=== PATIENT | female | born 1990 | race Caucasian/White ===

== ENCOUNTER 2017-07-24 11:04 | Emergency (ER) | payer OTHER ==
[2017-07-24 11:05] VITALS: BMI 23.3
[2017-07-24 11:13] VITALS: BP 128/75; PULSE 89; RESP 20; TEMP 98.3; O2SAT 100
--- NOTE | 2017-07-24 11:27 | C.PDOC ---
History Of Present Illness 27 yo female c/o cotton ball in right ear for 45 min. Pt notes she was cleaning her ears and the cotton from the Qtip fell out. She tried to use a joceline pin to retrieve it without success. (-) hearing loss (-) pain (-) discharge (-)bleeding Time Seen by Provider: 07/24/17 11:15 Chief Complaint (Nursing): ENT Problem History Per: Patient History/Exam Limitations: None Onset/Duration Of Symptoms: Mins Current Symptoms Are (Timing): Still Present Past Medical History Vital Signs: Last Vital Signs Temp 98.3 F 07/24/17 11:11 Pulse 89 07/24/17 11:11 Resp 20 07/24/17 11:11 BP 128/75 07/24/17 11:11 Pulse Ox 100 07/24/17 11:27 - Medical History PMH: Back Problems Family History: States: Unknown Family Hx - Social History Hx Tobacco Use: No Hx Alcohol Use: No Hx Substance Use: No - Immunization History Hx Tetanus Toxoid Vaccination: No Hx Influenza Vaccination: No Hx Pneumococcal Vaccination: No Review Of Systems Constitutional: Negative for: Fever Eyes: Negative for: Vision Change ENT: Negative for: Ear Pain, Ear Discharge Physical Exam - Physical Exam Appears: Well, Non-toxic, No Acute Distress Skin: Normal Color, Warm, Dry Head: Atraumatic, Normacephalic Eye(s): bilateral: Normal Inspection, PERRL, EOMI Ear(s): Left: Normal, Right: Other ((+) FB ) Nose: Normal Oral Mucosa: Moist Neck: Normal, Normal ROM, Supple Chest: Symmetrical Respiratory: No Accessory Muscle Use Back: Normal Inspection Extremity: Normal ROM Neurological/Psych: Oriented x3, Normal Speech ED Course And Treatment O2 Sat by Pulse Oximetry: 100 Progress Note: FB removed with alligator forceps. TM intact. No discharge or ertyhema. (+) light reflex. Disposition - Disposition Referrals: Lavelle Richards MD [Staff Provider] - Disposition: HOME/ ROUTINE Disposition Time: 11:25 Condition: STABLE Instructions: Ear Foreign Body (ED) Forms: [employer] English (Namibian) - Clinical Impression Clinical Impression: Ear foreign body
== END 2017-07-24 11:30 | disposition home or self-care (01) ==
LOC: C.ER 11:04
DX: T16.1XXA Foreign body in right ear, initial encounter (principal); X58.XXXA Exposure to other specified factors, initial encounter; Y93.E8 Activity, other personal hygiene

== ENCOUNTER 2018-01-24 12:04 | Inpatient (IN) | payer OTHER ==
[2018-01-24 12:29] VITALS: BMI 27.3
[2018-01-24] MEDS ORDERED: Penicillin G Potassium 5 MU in Dextrose 5% In Water 50 ML IV ONE (12:30)
--- NOTE | 2018-01-24 12:44 | OBHP ---
Datetime: 01/24/2018 12:35 IP Adm Impression: Term, intrauterine IP Admit Plan: Admit to unit Admit Comment, IP Provider: Pt is [id number] @ 39 4/7 presents today for complaints of contractions t hat started at 10:30 this am. She is being admitted for labor. POBHx: 2014 #5.8oz. PGYNHx: No STDs or hx of abnormal paps. PMHx: None PSHx: none Social: negative x 3. FHX: none. PE: SVE: /-1 A/P: labor 1) Admit 2) IVF 3) NPO 4) GBS + :start PCN 5) Epidural if necessary. Pelvic Type - PN: Adequate Extremities - PN: Normal Abdomen - PN: Normal Back - PN: Normal Breast - PN: Normal Lungs - PN: Normal Heart - PN: Normal Thyroid - PN: Normal Neurologic - PN: Normal HEENT - PN: Normal General - PN: Normal Presentation-Admit: Vertex FHR - Baseline A Provider: 150 Membranes, Provider: Intact Contraction Comments Provider: Q2-3 Comments, ACOG Physical Exam: PE: /-1 Gestation - Est Wks by US: 39 4/7 Pool Provider: Negative EGA AdmitDate IP: 39.3 Vital Signs Provider: Reviewed IP Chief Complaint: Uterine contractions NICHD Variability Prov Fetus A: Moderate 6-25bpm NICHD Accel Fetus A IP Provider: 15X15 FHR Category Provider Fetus A: Category I NICHD Decel Fetus A IP Provider: None Dilatation, Provider: 4 Effacement, Provider: 90 Station, Provider: -1 Genitourinary Exam: Normal DTRs - PN: Normal
--- NOTE | 2018-01-24 12:47 | OBADHP ---
Datetime: 01/24/2018 12:44 Admit Comment, IP Provider: ADMIT Labor Pelvic Type - PN: Adequate Extremities - PN: Normal Abdomen - PN: Normal Back - PN: Normal Breast - PN: Normal Lungs - PN: Normal Heart - PN: Normal Thyroid - PN: Normal Neurologic - PN: Normal HEENT - PN: Normal General - PN: Normal FHR - Baseline A Provider: 150 Membranes, Provider: Intact IP Chief Complaint: Uterine contractions NICHD Variability Prov Fetus A: Moderate 6-25bpm NICHD Accel Fetus A IP Provider: 15X15 Dilatation, Provider: 4 Effacement, Provider: 90 Station, Provider: -1 Genitourinary Exam: Normal DTRs - PN: Normal IP Adm Impression: Term, intrauterine ; Active labor IP Admit Plan: Admit to unit; Initiate labor protocol Datetime: 01/24/2018 12:35 Presentation-Admit: Vertex Contraction Comments Provider: Q2-3 Comments, ACOG Physical Exam: PE: /-1 Gestation - Est Wks by US: 39 4/7 Pool Provider: Negative Vital Signs Provider: Reviewed FHR Category Provider Fetus A: Category I NICHD Decel Fetus A IP Provider: None
--- NOTE | 2018-01-24 12:51 | OBHP ---
Datetime: 01/24/2018 12:44 IP Adm Impression: Term, intrauterine ; Active labor IP Admit Plan: Admit to unit; Initiate labor protocol Admit Comment, IP Provider: PT is @ 39 11/26 presents today for complaints of labor. She was seen in the private MD office and was noted to be in labor. POBHx: 2014 #5.08.bs PMHx: none PSHx: none Social: negative x 3 Medications: None ALL: NKDA. FHx: denies hx of cancer PE: 1 A/P: 27 @ a39 11/26 presents today for labor. 1) Admit to L_D 2) IVF 3) NPO 4) GBS+ 5) Epidural if necessary 6) Plan d/W Dr. Beal Pelvic Type - PN: Adequate Extremities - PN: Normal Abdomen - PN: Normal Back - PN: Normal Breast - PN: Normal Lungs - PN: Normal Heart - PN: Normal Thyroid - PN: Normal Neurologic - PN: Normal HEENT - PN: Normal General - PN: Normal FHR - Baseline A Provider: 150 Membranes, Provider: Intact EGA AdmitDate IP: 39.3 IP Chief Complaint: Uterine contractions NICHD Variability Prov Fetus A: Moderate 6-25bpm NICHD Accel Fetus A IP Provider: 15X15 Dilatation, Provider: 4 Effacement, Provider: 90 Station, Provider: -1 Genitourinary Exam: Normal DTRs - PN: Normal
[2018-01-24] MEDS ORDERED: Lactated Ringer's 1,000 ML IV SCH ×2 (13:00)
[2018-01-24 13:20] LABS: BASO % 0.6 % (0.0-2.0); EOS % 0.2 % (0.0-4.0); HEMOGLOBIN 10.9 g/dL (11.0-16.0); LYMPH # 1.7 K/uL (1.0-4.3); LYMPH % 23.1 % (20.0-40.0); MEAN CELL VOLUME 86.3 fL (81.0-99.0); MEAN CORPUSCULAR HEMOGLOBIN 29.4 pg (27.0-31.0); MEAN PLATELET VOLUME 9.4 fL (7.2-11.7); MONO # 0.5 K/uL (0.0-0.8); MONO % 6.2 % (0.0-10.0); NEUT # 5.1 K/uL (1.8-7.0); NEUT % 69.9 % (50.0-75.0); NRBC % 0.1 % (0.0-2.0); RBC 3.7 Mil/uL (3.80-5.20); RED CELL DISTRIBUTION WIDTH 15.1 % (11.5-14.5); WHITE BLOOD COUNT 7.3 K/uL (4.8-10.8)
[2018-01-24] MEDS ORDERED: Fentanyl/Bupivacaine HCl 250 ML EPI ONE (13:29)
[2018-01-24 13:38] LABS: ALBUMIN 3.5 g/dL (3.5-5.0); ALT/SGPT 18 U/L (9-52); AST/SGOT 21 U/L (14-36); BLOOD UREA NITROGEN 9 mg/dL (7-17); CALCIUM 9.2 mg/dl (8.6-10.4); GFR AFRICAN-AMERICAN > 60; GFR NON-AFRICAN AMERICAN > 60
[2018-01-24] MEDS ORDERED: Oxytocin 10 Units/ml Inj ONE ×2 (14:38→14:55)
[2018-01-24 14:47] LABS: SQUAMOUS EPITHIAL 1 /hpf (0-5); URINE BILIRUBIN NEGATIVE (NEGATIVE); URINE BLOOD NEGATIVE (NEGATIVE); URINE CLARITY Clear (Clear); URINE COLOR Yellow (YELLOW); URINE GLUCOSE (UA) NORMAL (Normal); URINE LEUKOCYTE ESTERASE NEG Leu/uL (Negative); URINE PROTEIN NEGATIVE (NEGATIVE); URINE UROBILINOGEN NORMAL mg/dL (0.2-1.0)
--- NOTE | 2018-01-24 15:02 | OBPN ---
Datetime: 01/24/2018 14:59 IP Progress Impression: Normal progression of labor IP Procedures: Sterile Vag Exam Contraction Comments Provider: q1-4 FHR - Baseline A Provider: 130 IP Progress Note Comment: pt was examined at bed side ve f/100/0 anticoaye will start pushing Vital Signs Provider: Reviewed; Within Normal Limits NICHD Accel Fetus A IP Provider: 15X15 FHR Category Provider Fetus A: Category I NICHD Variability Prov Fetus A: Moderate 6-25bpm Dilatation, Provider: 10 Effacement, Provider: 100 Station, Provider: 1 Datetime: 01/24/2018 12:44 Membranes, Provider: Intact Datetime: 01/24/2018 12:35 Pool Provider: Negative Gestation - Est Wks by US: 39 4/7 Presentation-Admit: Vertex NICHD Decel Fetus A IP Provider: None
--- NOTE | 2018-01-24 15:02 | OBADHP ---
Datetime: 01/24/2018 14:59 FHR - Baseline A Provider: 130 Contraction Comments Provider: q1-4 Vital Signs Provider: Reviewed; Within Normal Limits NICHD Variability Prov Fetus A: Moderate 6-25bpm NICHD Accel Fetus A IP Provider: 15X15 FHR Category Provider Fetus A: Category I Dilatation, Provider: 10 Effacement, Provider: 100 Station, Provider: 1 Datetime: 01/24/2018 12:44 Admit Comment, IP Provider: PT is @ 39 11/26 presents today for complaints of labor. She was seen in the private MD office and was noted to be in labor. POBHx: 2014 #5.08.bs PMHx: none PSHx: none Social: negative x 3 Medications: None ALL: NKDA. FHx: denies hx of cancer PE: 1 A/P: 27 @ a39 11/26 presents today for labor. 1) Admit to L_D 2) IVF 3) NPO 4) GBS+ 5) Epidural if necessary 6) Plan d/W Dr. Lian GURROLA AdmitDate IP: 39.3
[2018-01-24] MEDS ORDERED: Tdap Vaccine 0.5 ml Vial (10-64 yrs) IM ONE (15:04)
[2018-01-24] MEDS ORDERED: Oxycodone/Acetaminophen 5/325 mg Tab PO PRN (15:04)
--- NOTE | 2018-01-24 15:06 | OBDS ---
MATERNAL INFORMATION Estimated Blood Loss (ml): 500 Provider Comments: dr camarena private pateint baby deliverd in [place] compound presentation. end clean no com cytotec and extra pitocin given 9/9 cord gas send LABOR SUMMARY EDC: 01/28/2018 00:00 No. Babies in Womb: 1 LABOR INFORMATION Group B Beta Strep: Positive VAGINAL DELIVERY Episiotomy: None Laceration Extension: N/A Laceration Type: None BABY A INFORMATION Forceps: N/A Vacuum Extraction: N/A PRESENTATION/POSITION BABY A Presentation: Cephalic Cephalic Presentation: Vertex Vertex Position: Left Occipital Anterior with right arm PLACENTA INFORMATION BABY A Placenta Method of Delivery: Spontaneous Placenta Status: Delivered CORD INFORMATION BABY A Nuchal Cord : N/A
[2018-01-24] MEDS ORDERED: Oxytocin 30 UNIT 30 UNITS/500 ML BAG IV SCH (15:15)
[2018-01-24] MEDS ORDERED: Oxycodone/Acetaminophen 5/325 mg Tab ONE (17:42)
[2018-01-25 07:43] LABS: BASO % 0.4 % (0.0-2.0); EOS % 0.3 % (0.0-4.0); HEMOGLOBIN 9.9 g/dL (11.0-16.0); LYMPH # 1.8 K/uL (1.0-4.3); LYMPH % 22.2 % (20.0-40.0); MEAN CORPUSCULAR HEMOGLOBIN 28.6 pg (27.0-31.0); MEAN CORPUSCULAR HGB CONC 32.9 g/dL (33.0-37.0); MEAN PLATELET VOLUME 9.1 fL (7.2-11.7); MONO # 0.7 K/uL (0.0-0.8); MONO % 8.9 % (0.0-10.0); NEUT # 5.4 K/uL (1.8-7.0); NEUT % 68.2 % (50.0-75.0); RBC 3.46 Mil/uL (3.80-5.20); RED CELL DISTRIBUTION WIDTH 15.1 % (11.5-14.5)
[2018-01-25] MEDS ORDERED: Tdap Vaccine 0.5 ml Vial (10-64 yrs) IM ONE (10:00)
[2018-01-25] MEDS: Oxycodone/Acetaminophen 5/325 mg Tab PO PRN ×2 (10:35→17:49)
[2018-01-25] MEDS: Benzocaine/Menthol 20%-0.5% Topical Spray (60 ml) TOP PRN (10:37)
--- NOTE | 2018-01-25 11:54 | OBPPN ---
Datetime: 01/25/2018 11:51 PP Pain Prov: Within normal limits PP Nausea Prov: Denies PP Flatus Prov: Yes PP Abdomen/Uterus Prov: Normal PP Lochia Prov: Normal PP Extremities Prov: Normal PP Impression Prov: Normal progression PP Plan Prov: Continue present management PP Progress Note Prov: pt was seen T BED SIDE, PAIN UNDER CONTROL,NOM N/V, TYOLERTING DEIT,VOIDING,M IN [place] PPD#1 CONT PAIN MA CONT PP CARE ENCOURAGE AMBULATION Vital Signs Provider PP: Reviewed; Within Normal Limits
[2018-01-26 08:16] VITALS: BP 115/73; PULSE 56; O2SAT 98
[2018-01-26] MEDS: Benzocaine/Menthol 20%-0.5% Topical Spray (60 ml) TOP PRN (10:26)
[2018-01-26 18:50] VITALS: RESP 19; TEMP 97.1
== END 2018-01-26 13:30 | disposition home or self-care (01) | DRG 373 ==
LOC: C.EROB 12:04 → C.4D 12:30 → C.4M 18:30
PROVIDERS: ADMIT Obstetrics & Gynecology; ATTEND Obstetrics & Gynecology
PROC: 10E0XZZ Delivery of Products of Conception, External Approach (ICD-10-PCS; principal; 2018-01-24)
PROC: 3E0P7VZ Introduction of Hormone into Female Reproductive, Via Natural or Artificial Opening (ICD-10-PCS; 2018-01-24)
DX: O32.6XX0 Maternal care for compound presentation, not applicable or unspecified (principal); O99.824 Streptococcus B carrier state complicating childbirth; Z3A.39 39 weeks gestation of pregnancy; Z37.0 Single live birth